=== PATIENT | female | born 1955 | race Caucasian/White ===

== ENCOUNTER 2017-04-14 13:36 | Emergency (ER) | payer MEDICAID ==
--- NOTE | 2017-04-14 14:40 | EDM.PDOC ---
ED HPI GENERAL MEDICAL PROBLEM - General Chief Complaint: General Stated Complaint: PNEUMONIA? Time Seen by Provider: 04/14/17 13:40 Source of Information: Reports: Patient History Limitations: Reports: No Limitations - History of Present Illness INITIAL COMMENTS - FREE TEXT/NARRATIVE: According to patient she started having nasal congestion and cold symptoms 2 days ago. She claims she coughed all night yesterday and hence did come in to be seen. Cough gets worse at night. no wheezing, SOB, chest pain, nausea , vomiting. No fever or chills. No ear ache. She does feel drainage in the back of her throat. No backache or myalgia. Has been taking zyrtec 10mg daily. Onset Date: 04/12/17 Duration: Intermittent Severity: Mild Improves with: Reports: None Worsens with: Reports: None Associated Symptoms: Reports: Cough. Denies: Confusion, Chest Pain, Diaphoresis , Fever/Chills, Headaches, Nausea/Vomiting, Rash, Seizure, Shortness of Breath, Syncope, Weakness - Related Data Allergies Allergy/AdvReac Type Severity Reaction Status Date / Time Sulfa (Sulfonamide Allergy Stomach Verified 04/14/17 13:47 Antibiotics) Upset Past Medical History HEENT History: Reports: Cataract, Other (See Below) Other HEENT History: wears eyeglass Cardiovascular History: Reports: High Cholesterol Respiratory History: Reports: Asthma Gastrointestinal History: Reports: None [employer] History: Reports: Psychiatric History: Reports: Anxiety - Infectious Disease History Infectious Disease History: Reports: Chicken Pox, Measles - Past Surgical History HEENT Surgical History: Reports: None GI Surgical History: Reports: None Social & Family History - Tobacco Use Smoking Status *Q: Former Smoker Years of Tobacco use: 15 Packs/Tins Daily: 1 Used Tobacco, but Quit: No - Caffeine Use Caffeine Use: Reports: Coffee, Soda, Tea - Recreational Drug Use Recreational Drug Use: No ED ROS GENERAL - Review of Systems Review Of Systems: See Below Constitutional: Denies: Fever, Chills, Malaise, Weakness HEENT: Reports: Rhinitis, Sinus Problem. Denies: Ear Pain, Throat Pain, Throat Swelling, Vertigo, Vision Change Respiratory: Reports: Cough. Denies: Shortness of Breath, Wheezing, Pleuritic Chest Pain, Sputum Cardiovascular: Denies: Chest Pain, Lightheadedness GI/Abdominal: Denies: Abdominal Pain, Nausea, Vomiting Musculoskeletal: Denies: Joint Pain, Joint Swelling Skin: Denies: Bruising, Pruritis, Rash ED EXAM, GENERAL - Physical Exam Exam: See Below Exam Limited By: No Limitations General Appearance: Alert, WD/WN, No Apparent Distress Eye Exam: Bilateral Eye: EOMI, PERRL Ears: Normal External Exam, Normal Canal, Hearing Grossly Normal, Normal TMs Ear Exam: Bilateral Ear: Auricle Normal, Canal Normal, TM normal Nose: Nasal Drainage (mucoid white). No: Nasal Tenderness, Nasal Swelling Throat/Mouth: Normal Inspection, Normal Lips, Normal Teeth, Normal Gums, Normal Oropharynx, Normal Voice, No Airway Compromise Head: Atraumatic, Normocephalic Neck: Normal Inspection, Supple, Non-Tender, Full Range of Motion Respiratory/Chest: No Respiratory Distress, Lungs Clear, Normal Breath Sounds, No Accessory Muscle Use, Chest Non-Tender Cardiovascular: Normal Peripheral Pulses, Regular Rate, Rhythm, No Edema, No Gallop, No JVD, No Murmur, No Rub Extremities: Normal Inspection, Normal Range of Motion, Non-Tender, Normal Capillary Refill, No Pedal Edema Neurological: Alert, Oriented, CN II-XII Intact, Normal Cognition, Normal Gait, Normal Reflexes, No Motor/Sensory Deficits Skin Exam: Warm, Intact Course - Vital Signs Text/Narrative:: CBC shows white count of 5ooo with hemoglobin of 14.3gm. Pt reassured that she has early viral URI. Her symptoms do no appear like flu. Reassured. Advised to continue zyrtec 10mg daily. Also advised to take Vit C 1000mg daily for 1 wk. Rest and hydration. Steam inhalations to help with sinus drainage 2-3 times daily. As she has nocturnal cough have started her on guaif[place]in 2 tsp at bedtime. Should gradually improve in 5-7 days. Followup if symptoms worsen or develops fever, chills, shortness of breath or lethargy. - Orders/Labs/Meds Labs: Laboratory Tests 04/14/17 Range/Units 13:48 WBC 5.8 (4.0-11.0) K/uL RBC 4.65 (3.80-5.80) M/uL Hgb 14.3 (11.5-16.5) g/dL Hct 43.4 (37.0-47.0) % MCV 93 (76-96) fL MCH 30.8 (27.0-32.0) pg MCHC 32.9 (31.0-35.0) g/dL RDW 13.3 (11.0-16.0) % Plt Count 214 (150-500) K/uL MPV 9.3 (6.0-10.0) fL Neut % (Auto) 69.3 (45.0-70.0) % Lymph % (Auto) 17.5 L (20.0-40.0) % [place] % (Auto) 9.8 (3.0-10.0) % Eos % (Auto) 2.9 (1.0-5.0) % Baso % (Auto) 0.5 (0.0-0.5) % Neut # (Auto) 4.05 (2.00-7.50) K/uL Lymph # (Auto) 1.02 L (1.50-4.00) K/uL [place] # (Auto) 0.57 (0.20-0.80) K/uL Eos # (Auto) 0.17 (0.04-0.40) K/uL Baso # (Auto) 0.03 (0.02-0.10) K/uL Departure - Departure Time of Disposition: 14:15 Disposition: Home, Self-Care 01 Condition: Good Clinical Impression: Viral URI with cough - Discharge Information Instructions: Viral Respiratory Infection, Tecb-Hg-Darf, Codeine; Guaifenesin oral solution or syrup Referrals: PCP,None [Primary Care Provider] - Forms: ED Department Discharge Additional Instructions: - Take Vitamin C 1000 mg daily. - Take Zyrtec 10 mg daily for one week. - Steam Inhalation to help minimized sinus congestion - Take Guiafenesin with Codeine 2 teaspoons at bedtime. - DO NOT TAKE Sudafed - it will make your blood pressure elevated and harden your cough. - Drink more fluids. - Come to the clinic if condition worsens. - Problem List & Annotations (1) Viral URI with cough SNOMED Code(s): 513863739 Code(s): J06.9 - ACUTE UPPER RESPIRATORY INFECTION, UNSPECIFIED; B97.89 - OTH VIRAL AGENTS THE CAUSE OF DISEASES CLASSD [id number] Status: Acute Current Visit: Yes - Problem List Review Problem List Initiated/Reviewed/Updated: Yes - Assessment/Plan Assessment:: Viral URI with cough Plan: CBC shows white count of 5ooo with hemoglobin of 14.3gm. Pt reassured that she has early viral URI. Her symptoms do no appear like flu. Reassured. Advised to continue zyrtec 10mg daily. Also advised to take Vit C 1000mg daily for 1 wk. Rest and hydration. Steam inhalations to help with sinus drainage 2-3 times daily. As she has nocturnal cough have started her on guaif[place]in 2 tsp at bedtime. Should gradually improve in 5-7 days. Followup if symptoms worsen or develops fever, chills, shortness of breath or lethargy.
== END 2017-04-14 14:27 | disposition home or self-care (01) ==
LOC: LB.ED 13:36
DX: J06.9 Acute upper respiratory infection, unspecified (principal); E78.00 Pure hypercholesterolemia, unspecified; Z87.891 Personal history of nicotine dependence; Z88.2 Allergy status to sulfonamides
CPT/HCPCS: 36415; 85025; 99283